=== PATIENT | male | born 1950 | race Hispanic/Latino ===

== ENCOUNTER 2022-01-13 15:55 | Emergency (ER) | payer MEDICARE, OTHER ==
--- NOTE | 2022-01-13 17:00 | Emergency Department Report ---
ED General Adult HPI - General Chief complaint: Cardiac Arrest/CPR Stated complaint: CARDIAC ARREST Time Seen by Provider: 01/13/22 16:01 Source: EMS Mode of arrival: Stretcher Limitations: Other - History of Present Illness Initial comments: 71-year-old male hospice patient during transport from [facility] to home hospice. Patient was brought here by [facility] ambulance unit for pronouncement and disposition. No production crew supervisor advised for patient to be transported here for pronouncement and [facility] notification - Related Data Home Medications Medication Instructions Recorded Confirmed Last Taken Clopidogrel Bisulfate [Plavix] 75 mg PO DAILY 09/13/13 09/17/13 09/16/13 Hydrocodone Bit/Acetaminophen 7.5 mg PO DAILY 09/13/13 09/17/13 09/16/13 [Lortab 7.5-500 mg] Isosorbide Dinitrate 30 mg PO DAILY 09/13/13 09/17/13 09/16/13 Metoprolol [Lopressor TAB] 25 mg PO DAILY 09/13/13 09/17/13 09/16/13 Multivitamin [Multi-Vitamin Daily] 1 each PO DAILY 09/13/13 09/17/13 09/16/13 traMADoL [Ultram 50 MG tab] 50 mg PO DAILY 09/13/13 09/17/13 09/16/13 Allergies Allergy/AdvReac Type Severity Reaction Status Date / Time Penicillins Allergy Rash Verified 09/17/13 13:51 ED Review of Systems ROS: Stated complaint: CARDIAC ARREST Other details as noted in HPI Comment: Unobtainable due to pts medical conditions ED Past Medical Hx - Past Medical History Hx Hypertension: Yes (took metaprolol) - Surgical History Hx Coronary Stent: Yes (x2) - Medications Home Medications: Home Medications Medication Instructions Recorded Confirmed Last Taken Type Clopidogrel Bisulfate [Plavix] 75 mg PO DAILY 09/13/13 09/17/13 09/16/13 History Hydrocodone Bit/Acetaminophen 7.5 mg PO DAILY 09/13/13 09/17/13 09/16/13 History [Lortab 7.5-500 mg] Isosorbide Dinitrate 30 mg PO DAILY 09/13/13 09/17/13 09/16/13 History Metoprolol [Lopressor TAB] 25 mg PO DAILY 09/13/13 09/17/13 09/16/13 History Multivitamin [Multi-Vitamin Daily] 1 each PO DAILY 09/13/13 09/17/13 09/16/13 History traMADoL [Ultram 50 MG tab] 50 mg PO DAILY 09/13/13 09/17/13 09/16/13 History ED Physical Exam - General Limitations: Other - Other Other exam information: General: Unresponsive Head: Atraumatic Eyes: Thick Neck: Tracheostomy Chest: Apnea CV: Pulseless Abdomen: nondistended Neuro: GCS equals 3 ED Medical Decision Making - Medical Decision Making 71-year-old male who was hospice and DNR who rested during transport from another hospital's ICU was diverted here for pronouncement and disposition of the body patient has no signs of life upon arrival and was pronounced . Critical Care Time: No Critical care attestation.: If time is entered above; I have spent that time in minutes in the direct care of this critically ill patient, excluding procedure time. ED Disposition Clinical Impression: Cardiopulmonary arrest, Hospice care patient Disposition: 20 Is pt being admited?: No Condition: Stable Time of Disposition: 17:00
== END 2022-01-13 20:25 ==
LOC: ED 15:55
DX: I46.9 Cardiac arrest, cause unspecified (principal); Z51.5 Encounter for palliative care; I10 Essential (primary) hypertension
CPT/HCPCS: 99285